=== PATIENT | male | born 1955 | race Caucasian/White ===

== ENCOUNTER 2017-01-19 15:34 | Emergency (ER) | payer OTHER ==
[~2017-01-19] VITALS: Ht 182.9 cm; Wt 111.4 kg
[2017-01-19 15:37] VITALS: TEMP 98.3
[2017-01-19] MEDS ORDERED: ASPIRIN 81M81 MG/TA2 PO (15:40)
[2017-01-19] MEDS ORDERED: ZOCOR 20MG20 MG PO (15:40)
[2017-01-19] MEDS ORDERED: ULTRAM 50MG TAB50 MG PO (15:40)
[2017-01-19 16:32] LABS: BASO # 0.1 (0.0-0.2); EOS # 0.3 (0.0-0.7); EOS % 2.8 % (0-4.0); GRAN # 4.7 (1.4-6.5); GRAN % 53.3 % (42.2-75.2); HEMATOCRIT 40.9 % (42.0-52.0); HEMOGLOBIN 13.9 g/dl (13.5-18.0); LYMPH # 3.1 (1.2-3.4); LYMPH % 35.6 % (20.0-51.0); MEAN CELL VOLUME 92 fl (80.0-100.0); MEAN CORPUSCULAR HEMOGLOBIN 31 pg (27.0-31.0); MEAN CORPUSCULAR HGB CONC 34 g/dl (33.0-37.0); MONO # 0.6 (0.1-0.6); PLATELET COUNT 187 K/mm3 (130-400); RED BLOOD COUNT 4.46 M/mm3 (4.20-5.60); REDCELL DISTRIBUTION WIDTH-CV 13.6 % (11.5-14.5); WHITE BLOOD COUNT 8.8 K/mm3 (4.8-10.8)
[2017-01-19 16:42] LABS: ADJUSTED CALCIUM 9.8 mg/dL (8.4-10.2); ALANINE AMINOTRANSFERASE 48 U/L (21-72); ALKALINE PHOSPHATASE 71 U/L (50-136); ANION GAP 8 mmol/L (7-16); BILIRUBIN,TOTAL 0.4 mg/dL (0.0-1.0); BLOOD UREA NITROGEN 15 mg/dL (9-20); CALCIUM 9.8 mg/dL (8.4-10.2); CARBON DIOXIDE 23 mmol/L (22-30); CHLORIDE 107 mmol/L (98-107); CREATINE KINASE 361 U/L (55-170); CREATININE, serum 1.07 mg/dL (0.66-1.25); GLUCOSE 100 mg/dL (74-106); LIPASE 290 U/L (23-300); POTASSIUM 3.7 mmol/L (3.4-5.0); SODIUM 138 mmol/L (137-145); TOTAL PROTEIN 6.8 gm/dL (6.4-8.2)
[2017-01-19 16:53] LABS: B-TYPE NATRIURETIC PEPTIDE 42 pg/mL (0-125)
[2017-01-19 16:55] LABS: TROPONIN-I < 0.012 ng/mL (0.000-0.034)
[2017-01-19 20:13] VITALS: BP 146/94; PULSE 66
== END 2017-01-19 20:24 | disposition home or self-care (01) ==
LOC: COL.ER 15:34
PROVIDERS: Emergency Medicine
DX: J44.9 Chronic obstructive pulmonary disease, unspecified (principal); E78.5 Hyperlipidemia, unspecified; F17.210 Nicotine dependence, cigarettes, uncomplicated; Z79.82 Long term (current) use of aspirin